=== PATIENT | male | born 1985 | race Caucasian/White ===

== ENCOUNTER 2020-06-22 08:35 | Outpatient (REF) | payer OTHER, SELFPAY ==
--- NOTE | ~2020-06-22 | XR_ITS ---
EXAMINATION: XR FOOT, RIGHT CLINICAL INFORMATION: Pain right foot. COMPARISON: None TECHNIQUE: AP, lateral, and oblique views of the right foot. FINDINGS: There is a transverse nondisplaced fracture at junction base and proximal shaft fifth toe proximal phalanx best appreciated on the AP and oblique views. The remainder of the bony structures appear intact. There is no destructive process. No dislocation. There is moderate posterior calcaneal spur. There is borderline spurring from the distal dorsal navicular. XR/XR foot RT min 3V IMPRESSION: Nondisplaced transverse fracture at junction base and proximal shaft fifth toe proximal phalanx. No dislocation.
== END 2020-06-22 08:36 | disposition home or self-care (01) ==
LOC: HO.HMGCX 08:35
PROVIDERS: PCP Nurse Practitioner Family; Visit Provider Hospitalist
DX: M79.671 Pain in right foot (principal)
CPT/HCPCS: 73630

== ENCOUNTER 2021-01-27 14:46 | Outpatient (REF) | payer OTHER, SELFPAY ==
--- NOTE | ~2021-01-27 | XR_ITS ---
EXAMINATION: XR FOOT, LEFT CLINICAL INFORMATION: Left foot pain COMPARISON: None TECHNIQUE: AP, lateral, and oblique views of the left foot. FINDINGS: Bones have normal alignment throughout the foot. The joint spaces are well-preserved, with exception of minimal joint space narrowing at the 1st metatarsophalangeal joint. No evidence of fracture, subluxation or focal soft tissue swelling. There are very small marginal osteophytes at the great toe metatarsophalangeal joint. No erosion or periostitis. No radiopaque foreign body. XR/XR foot LT min 3V IMPRESSION: * No evidence of fracture or malalignment of left foot. 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
== END 2021-01-27 14:47 | disposition home or self-care (01) ==
LOC: HO.HMGCX 14:46
PROVIDERS: PCP Nurse Practitioner Family; Visit Provider Physician Assistant Medical
DX: M79.672 Pain in left foot (principal)
CPT/HCPCS: 73630

== ENCOUNTER 2021-10-28 10:38 | Outpatient (REF) | payer OTHER, SELFPAY ==
--- NOTE | ~2021-10-28 | XR_ITS ---
EXAMINATION: CERVICAL AND LUMBAR SPINE CLINICAL INFORMATION: Pain COMPARISON: Cervical spine of July 19, 2018 TECHNIQUE: Three-view lumbar spine and three-view cervical spine FINDINGS: Cervical spine: The bony texture and alignment of the cervical spine is satisfactory. Disc spaces are maintained. No abnormal prevertebral soft tissue swelling is seen. Lumbar spine: There are 5 nonrib-bearing lumbar vertebra. The bony texture and alignment is satisfactory. There is minimal narrowing of the L5-S1 disc space. No acute fracture, spondylolisthesis, or spondylolysis identified. Sacroiliac joints unremarkable. XR/XR cervical spine 3V IMPRESSION: No significant bony abnormality of the cervical or lumbar spine.
--- NOTE | ~2021-10-28 | XR_ITS ---
EXAMINATION: CERVICAL AND LUMBAR SPINE CLINICAL INFORMATION: Pain COMPARISON: Cervical spine of July 19, 2018 TECHNIQUE: Three-view lumbar spine and three-view cervical spine FINDINGS: Cervical spine: The bony texture and alignment of the cervical spine is satisfactory. Disc spaces are maintained. No abnormal prevertebral soft tissue swelling is seen. Lumbar spine: There are 5 nonrib-bearing lumbar vertebra. The bony texture and alignment is satisfactory. There is minimal narrowing of the L5-S1 disc space. No acute fracture, spondylolisthesis, or spondylolysis identified. Sacroiliac joints unremarkable. XR/XR lumbar spine 2-3V IMPRESSION: No significant bony abnormality of the cervical or lumbar spine.
== END 2021-10-28 10:39 | disposition home or self-care (01) ==
LOC: HO.HMGCX 10:38
PROVIDERS: Visit Provider Internal Medicine
DX: M54.12 Radiculopathy, cervical region (principal); M54.50 Low back pain, unspecified
CPT/HCPCS: 72040; 72100

== ENCOUNTER 2021-12-01 14:00 | Outpatient (RCR) | payer OTHER, SELFPAY ==
--- NOTE | 2021-11-26 09:19 | MHC.PT.EP ---
[facility] [place] Office [place] [facility] [place] Office [address] [phone] F: [phone] F: [phone] F: [phone] F: [phone] Physical Therapy Plan of Care Date of Evaluation: Date of Surgery: Diagnosis: This is 36 yo male presenting to skilled PT with a script for low back pain Assessment: This is 36 yo male presenting to skilled PT with a script for low back pain and neck pain. Patient reports hitting a pot hole on his quad 4-5 weeks ago. He felt an electric shock in his back up to his neck (as well as L arm). He notes that he has always had low back pain however. Pain is L side c-spine and R side low back. Pain at the neck feels like annoying and tight. Pain in the low back is weakness and achy. Pain increases with daily home activities, working, cleaning, lawncare etc. Pain depends on his activities. Assessment reveals pain that ranges up to a 8/10. He demos more cervical restrictions vs lumbar. He demos decreased ROM, decreased LUE strength, impaired cervical joint mobility with tenderness along c-spine muscle and bony landmarks as well as gross functional decline with driving, turning his head and normal daily routine. He is a good candidate for skilled PT 2x/wk for 5wks. Frequency and Duration: The patient will be seen 2x/wk for 4wks Short Term Goals: I in HEP Demo proper cervical alignment and posture with ther-ex, no PT cuing Geospatial Technician Goals: Demo normal cervical AROM without pain Improve pain to no more than 2/10 at the worst Improve NDI by 10 points Tolerate sleeping through the night without waking from pain Demo at least 4+/5 scapular and shoulder strength Treatment Plan: Modalities to reduce pain, spasms and effusion. Manual therapy to restore motion and function. Therapeutic exercise to improve strength and flexibility. Neuromuscular re-education for posture and balance. Therapeutic activities to return to functional activities of daily living. Electronically signed by: Sarah Higuera PT Please sign and return to therapist. Thank you for your referral.
--- NOTE | 2021-12-31 10:26 | MHC.PT.DC ---
[facility] [place] Office [place] [facility] [place] Office [address] Duggan [address] [phone] F: [phone] F: [phone] F: [phone] F: [phone] Physical Therapy Discharge Report Diagnosis: This is 36 yo male presenting to skilled PT with a script for low back pain Date of Surgery: Date of Evaluation: 11/25/21 Date of Discharge: 12/31/21 Treatments to Date: 2 Cancellations to Date: 0 No Shows to Date: 0 Discharge Status: Patient Elected to Stop Discharge Summary: This is 36 yo male presenting to skilled PT with a script for low back pain and neck pain. Patient reports hitting a pot hole on his quad 4-5 weeks ago. He felt an electric shock in his back up to his neck (as well as L arm). He notes that he has always had low back pain however. Pain is L side c-spine and R side low back. Pain at the neck feels like annoying and tight. Pain in the low back is weakness and achy. Pain increases with daily home activities, working, cleaning, lawncare etc. Pain depends on his activities. Assessment reveals pain that ranges up to a 8/10. He demos more cervical restrictions vs lumbar. He demos decreased ROM, decreased LUE strength, impaired cervical joint mobility with tenderness along c-spine muscle and bony landmarks as well as gross functional decline with driving, turning his head and normal daily routine. He is a good candidate for skilled PT 2x/wk for 5wks. Patient came for eval and 1 follow up. He cancelled his remaining appointment. I kept his chart open for 30 days but patient did not call to rebook. At his last follow up on 12/01 patient with tightness to start the session, improved mobility and pain s/p. I educated him on icing later today as he might be more sore. Educated on posture at work and repetitive movements causing continued pain. Added SNAGs in today with good results. DC to HEP due to summary above. Electronically signed by: Sarah Higuera, PT Please sign and return to therapist. Thank you for your referral.
== END 2021-12-31 10:27 | disposition home or self-care (01) ==
LOC: HO.PTCHIC 14:00
PROVIDERS: PCP Nurse Practitioner Family; Visit Provider Nurse Practitioner Family
DX: M54.50 Low back pain, unspecified (principal)
CPT/HCPCS: 97012; 97014; 97110; 97140; 97162

== ENCOUNTER 2022-01-03 18:36 | Outpatient (REF) | payer OTHER, SELFPAY ==
--- NOTE | ~2022-01-03 | MR_ITS ---
EXAMINATION: MR CERVICAL SPINE WITHOUT CONTRAST CLINICAL INFORMATION: 36-year-old with left-sided cervical radiculopathy. COMPARISON: None TECHNIQUE: MRI of the cervical spine was obtained using routine sequences without contrast. FINDINGS: Alignment: Slight mid cervical levocurvature noted. Normal alignment in the sagittal plane. Craniocervical Junction/C1-C2 Articulations: Intact and aligned. Visualized Intracranial Structures: Within normal limits. Vertebral Bodies: Normal height. Disc Spaces and Endplates: The intervertebral disc space heights are well-maintained, with intact endplates without significant spondylosis. There is mild disc degenerative change manifested by disc desiccation at the levels between C3-C4 and C5-C6 inclusive. Bone Marrow: Subchondral marrow edema noted on both sides of the left C2-C3 facet joint consistent with facet arthropathy. Otherwise bone marrow signal intensity is within normal limits. C2-C3: No disc herniation or canal stenosis. There is moderate left-sided facet arthropathy, with associated reactive subchondral marrow edema and mild left-sided neural foraminal narrowing without neural impingement or canal stenosis. No disc herniation. C3-C4: No disc herniation or canal stenosis. [id number] facet hypertrophic degenerative change noted on the left without significant neural foraminal stenosis. C4-C5: Shallow broad-based central disc protrusion with slight indentation of the ventral thecal sac noted without cord impingement or canal stenosis. Mild facet hypertrophic degenerative changes, left more than right, and minor uncinate process spurring without significant neural foraminal stenosis. Small perineural cyst in the right neural foramen. C5-C6: Shallow broad-based central disc protrusion with a tiny central annular fissure and minimal flattening of the ventral dural sac without cord impingement or canal stenosis. Mild facet hypertrophic changes noted bilaterally and mild uncinate process spurring on the left, with [id number] left-sided neural foraminal stenosis without neural impingement. C6-C7: No disc herniation or canal stenosis. No significant DJD or neuroforaminal stenosis. C7-T1: No disc herniation or canal stenosis. No significant DJD or neuroforaminal stenosis. Spinal Cord: The cervical and visualized upper thoracic spinal cord is normal in morphology, caliber and signal intensity throughout. Extracranial Soft Tissues: The visualized extracranial head/neck soft tissues are unremarkable within the limitations of the study. MR/MR cervical spine wo con IMPRESSION: 1. Slight mid cervical levocurvature noted which is nonspecific but could be secondary to muscle spasm with otherwise normal spinal alignment. 2. Shallow, broad-based central disc protrusions at C4-C5 and C5-C6 without cord impingement or canal stenosis. 3. Multilevel facet arthrosis, most apparent on the left at C2-C3 with subchondral reactive marrow edema on both sides of the left C2-C3 facet joint suggesting active inflammatory changes associated with mild left-sided neural foraminal narrowing. 3. [id number] left-sided bony neural foraminal stenosis also noted on the left at C5-C6.
== END 2022-01-03 18:37 | disposition home or self-care (01) ==
LOC: HO.MRI 18:36
PROVIDERS: Visit Provider Nurse Practitioner Family
DX: M54.12 Radiculopathy, cervical region (principal)
CPT/HCPCS: 72141